=== PATIENT | male | born 1985 | race Caucasian/White ===

== ENCOUNTER 2020-03-10 22:02 | Emergency (ER) | payer SELFPAY ==
[~2020-03-10] VITALS: Ht 182.9 cm; Wt 81.8 kg
[2020-03-10] MEDS ORDERED: silver sulfADIAZINE 1% CREAM 50GM JAR. TP ONE (22:06)
[2020-03-10] MEDS ORDERED: IV NORMAL SALINE 1,000ML 1,000 ML IV ONE (22:15)
[2020-03-10] MEDS ORDERED: ONDANSETRON PF 4 MG/2 ML VIAL. IVP ONE (22:15)
[2020-03-10] MEDS ORDERED: MORPHINE SULFATE 4 MG/ML DISP.SYRIN. IV ONE ×2 (22:15→22:30)
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
[2020-03-10] MEDS ORDERED: oxyCODONE/APAP 7.5/325 1 TAB TABLET PO ONE (23:45)
[2020-03-11] MEDS ORDERED: OXYC-325 PO (00:06)
[2020-03-11 00:17] VITALS: BP 120/66
== END 2020-03-11 00:50 | disposition home or self-care (01) ==
LOC: ER 22:02
DX: T25.222A Burn of second degree of left foot, initial encounter (principal); T25.031A Burn of unspecified degree of right toe(s) (nail), initial encounter; F10.20 Alcohol dependence, uncomplicated; Z88.8 Allergy status to other drugs, medicaments and biological substances; Y90.9 Presence of alcohol in blood, level not specified; X19.XXXA Contact with other heat and hot substances, initial encounter; Y93.89 Activity, other specified; Y92.89 Other specified places as the place of occurrence of the external cause; Y99.8 Other external cause status
CPT/HCPCS: 16020; 96374; 96375; 99284; J2270; J2405; J7030

== ENCOUNTER 2020-09-14 18:44 | Emergency (ER) | payer SELFPAY ==
[~2020-09-14] VITALS: Ht 182.9 cm; Wt 84.2 kg
[~2020-09-14 18:44] MED LIST: OXYC-325 PO
[2020-09-14 18:51] VITALS: BP 133/84
[2020-09-14] MEDS ORDERED: DIPH,PERTUSS(ACELL),TET VAC/PF 0.5 ML SYRINGE. VAX IM ONE (19:30)
[2020-09-14] MEDS ORDERED: IV NORMAL SALINE 50ML 50 ML ONE (19:40)
[2020-09-14] MEDS ORDERED: ceFAZolin SODIUM 1 GM VIAL ONE (19:40)
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
[2020-09-14] MEDS ORDERED: IBUPROFEN 600 MG TABLET. PO ONE (20:15)
[2020-09-14] MEDS ORDERED: BACITRACIN ZINC TOPICAL OINT PACKET. TP ONE (20:15)
[2020-09-14] MEDS ORDERED: CEPH-264 PO (20:37)
[2020-09-14] MEDS ORDERED: IBUP600T16 PO (20:37)
== END 2020-09-14 20:45 | disposition home or self-care (01) ==
LOC: ER 18:44
DX: S63.502A Unspecified sprain of left wrist, initial encounter (principal); S60.222A Contusion of left hand, initial encounter; S50.12XA Contusion of left forearm, initial encounter; F10.20 Alcohol dependence, uncomplicated; Z88.8 Allergy status to other drugs, medicaments and biological substances; V86.99XA Unspecified occupant of other special all-terrain or other off-road motor vehicle injured in nontraffic accident, initial encounter; Y93.89 Activity, other specified; Y92.89 Other specified places as the place of occurrence of the external cause; Y99.8 Other external cause status; Y90.9 Presence of alcohol in blood, level not specified
CPT/HCPCS: 29125; 73090; 73110; 73130; 90471; 90715; 96365; 99284; J0690